=== PATIENT | female | born 1960 | race Caucasian/White ===

== ENCOUNTER 2017-03-26 08:26 | Emergency (ER) | payer OTHER ==
[2017-03-26 08:41] VITALS: BP 123/82
[2017-03-26] MEDS ORDERED: BACIGUENT PACKET ONE (09:06)
[2017-03-26] MEDS: BACIGUENT PACKET TP ONE (09:07)
--- NOTE | 2017-03-26 09:12 | ERPHSYRPT ---
- History of Present Illness Time Seen by Provider: 03/26/17 08:41 Source: patient Patient Subjective Stated Complaint: cat bite yesterday Triage Nursing Assessment: pt had stray mother cat and kittens for 12 hours in a pen--pt went in pen to feed and mother cat tried to get out of pen and pt grabbed cat and cat bit rt dorsal mid knuckles and lt outer hand. puncture wounds and slight redness noted to bilat hands. pt stated that the cat was acting appropriately for the time she had her. Physician History: CC: cat bite Hx: 56 y/o healthy patient of Dr Cardozo. 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 A family that had 7 week old kittens. Cat was apparently in a good state of health. 2 days ago, patient was feeding the cat, it became scared and bit her on the left and right hand. She took two left over amoxil yesterday. Today the right had and some redness and swelling. No fever or drng. Last tetanus vaccine 2 days ago. Mild discomfort. Allergies/Adverse Reactions: No Known Drug Allergies Allergy (Unverified 03/26/17 08:41) Hx Tetanus, Diphtheria Vaccination/Date Given: Yes Hx Influenza Vaccination/Date Given: No Hx Pneumococcal Vaccination/Date Given: No Immunizations Up to Date: Yes - Review of Systems Constitutional: No Fever, No Chills Respiratory: No Dyspnea Abdominal/Gastrointestinal: No Nausea, No Vomiting Neurological: No Focal Weakness, No Parasthesia All Other Systems: Reviewed and Negative - Past Medical History Pertinent Past Medical History: No - Past Surgical History Past Surgical History: Yes Female Surgical History: Tubal Ligation - Social History Smoking Status: Never smoker Exposure to second hand smoke: No Drug Use: none Patient Lives Alone: Yes - Female History Hx Now: No - Nursing Vital Signs Nursing Vital Signs: Initial Vital Signs Temperature 97.8 F Temperature Source Oral Pulse Rate 74 Respiratory Rate 18 Blood Pressure [Right Arm] 123/82 Pain Intensity 4 - Physical Exam General Appearance: alert Eyes, Ears, Nose, Throat Exam: moist mucous membranes Neck Exam: normal inspection, non-tender, supple Cardiovascular/Respiratory Exam: regular rate/rhythm Neuro/Tendon Exam: normal sensation, normal motor functions Mental Status Exam: alert, 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, cooperative Skin Exam: warm, dry Comments: left hand has small puncture without swelling, redness, or drng. Good ROM. Right hand has puncture dorsal between 3,4 MCP. Mild erythema and swelling. No drng. Good ROM. Pulse intact. Good cap refill. - Course Nursing assessment & vital signs reviewed: Yes - Radiology Exams right hand X-ray Interpretation: Teleradiologist Report, Negative Ordered Tests: Active Orders 24 hr Category Date Time Status Wound Care STAT Care 03/26/17 08:56 Active HAND (MINIMUM 3 VIEWS) Stat Exams 03/26/17 08:55 Completed Medication Summary Discontinued Medications Generic Name Dose Route Start Last Admin Trade Name Shiva PRN Reason Stop Dose Admin Bacitracin 0.9 gm 03/26/17 08:56 03/26/17 09:07 Baciguent Packet TP 03/26/17 08:57 0.9 gm STAT ONE Administration Bacitracin Confirm 03/26/17 09:06 Baciguent Packet Administered 03/26/17 09:07 Dose 1 gm .ROUTE .STK-MED ONE - Progress Progress Note: 03/26/17 10:15 Wound cleansed. Mild erythema. Will Rx augmentin. Discussed wound care and signs of infection with instr to return or see her family Dr Cardozo right away if needed. Called [facility] and spoke to Dr Isha Wallace [facility] rabies traveling storekeeper. She advised this is low risk of rabies as cat was healthy, no sign of neurological illness, provoked attack while feeding and separation from kittens. She advised no rabies prophylaxis. This was explained to pt in detail and she expresses understanding and agreement. Counseled pt/family regarding: diagnosis, need for follow-up, rad results - Departure Time of Disposition: 10:17 Departure Disposition: Home Clinical Impression: Cat bite of hand Qualifiers: Encounter type: initial encounter Laterality: right Qualified Code(s): S61.451A - Open bite of right hand, initial encounter; W55.01XA - Bitten by cat , initial encounter Condition: Stable Critical Care Time: No Referrals: AKASH NOGUERA DO [Primary Care Provider] - TALIA CARDOZO [ACTIVE STAFF] - Instructions: Animal Bites Additional Instructions: Keep wounds clean and dry. Elevate hands. Report any worsening infection (redness, swelling, drainage, fever, excessive pain) right away. Rx augmentin. Follow up with Dr Cardozo. Quarantine cat for 10 days to make sure stays healthy if the cat becomes available. Prescriptions: Amox Tr/Potass Clav. 500 mg [Augmentin 500-125 Tablet] 1 each PO TID #21 tablet
--- NOTE | 2017-03-26 09:23 | XRAY ---
Indication: Cat bite. Comparison: None 3 views of the right hand obtained. No bony, articular, or soft tissue abnormalities.
[2017-03-26 10:26] VITALS: PULSE 70
== END 2017-03-26 10:25 | disposition home or self-care (01) ==
LOC: ED 08:26
DX: S61.451A Open bite of right hand, initial encounter (principal); W55.01XA Bitten by cat, initial encounter
CPT/HCPCS: 73130; 99284; A9270-GY

== ENCOUNTER 2021-06-08 17:26 | Emergency (ER) | payer OTHER ==
[2021-06-08 17:31] VITALS: O2SAT 100
[2021-06-08] MEDS ORDERED: Sodium Chloride 0.9% 1000 ML 1,000 ML IV STA (17:34)
[2021-06-08] MEDS ORDERED: BABY ASPIRIN 81 MG CHEW PO ONE (17:34)
[2021-06-08] MEDS ORDERED: BABY ASPIRIN 81 MG CHEW ONE (17:39)
[2021-06-08] MEDS ORDERED: Sodium Chloride 0.9% 1000 ML 0 ML ONE (17:39)
--- NOTE | 2021-06-08 17:45 | ERPHSYRPT ---
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 It was associated with some dizziness and a heartburn feeling pain she was short of air she had some pounding in her chest she had a similar episode several years ago which was judged to be anxiety. She has been vaccinated for Covid she did have some diaphoresis with her dizziness. She actually had Covid in late last year. Risk factors are negative for diabetes negative for smoking cholesterol status is unknown there is no hypertension only family history is mother had mitral valve prolapse. Timing/Duration: today Activities at Onset: other (Working as work.) Quality: burning, fullness Location: substernal Chest Pain Radiation: no radiation Severity of Pain-Max: mild Severity of Pain-Current: mild Modifying Factors: Improves With: nothing Associated Symptoms: nausea, palpitations, heartburn, diaphoresis Nitro Today/Relief: no nitro taken today Aspirin Treatment Today: no aspirin today Allergies/Adverse Reactions: No Known Drug Allergies Allergy (Verified 06/08/21 17:35) Home Medications: No Reportable Medications [No Reported Medications] 06/08/21 [History] Hx Tetanus, Diphtheria Vaccination/Date Given: Yes Hx Influenza Vaccination/Date Given: Yes Hx Pneumococcal Vaccination/Date Given: No Immunizations Up to Date: No Travel Risk - International Travel Have you traveled outside of the country in past 3 weeks: No - Coronavirus Screening Are you exhibiting any of the following symptoms?: No - Vaccine Status Have you recieved a Covid-19 vaccination: Yes Care Provider: Moderna - Vaccination Dates Date of 2cond Vaccination (if applicable): ? - Review of Systems Constitutional: No Fever, No Chills Eyes: No Symptoms Ears, Nose, & Throat: No Symptoms Respiratory: Dyspnea, No Cough Cardiac: Chest Pain, Palpitations, No Edema, No Syncope Abdominal/Gastrointestinal: No Abdominal Pain, No Nausea, No Vomiting, No Diarrhea Genitourinary Symptoms: No Dysuria Musculoskeletal: No Back Pain, No Neck Pain Skin: No Rash Neurological: No Dizziness, No Focal Weakness, No Sensory Changes Psychological: No Symptoms Endocrine: No Symptoms All Other Systems: Reviewed and Negative - Past Medical History Pertinent Past Medical History: Yes Other Medical History: covid-aug 2020 - Past Surgical History Past Surgical History: Yes Female Surgical History: Tubal Ligation - Social History Smoking Status: Never smoker Exposure to second hand smoke: No Drug Use: none Patient Lives Alone: Yes - Female History Hx Last Menstrual Period: post - Physical Exam General Appearance: no apparent distress, alert Eye Exam: PERRL/EOMI, eyes nml inspection Ears, Nose, Throat Exam: normal ENT inspection, moist mucous membranes Neck Exam: normal inspection, non-tender, supple, full range of motion Respiratory Exam: normal breath sounds, lungs clear, No respiratory distress Cardiovascular Exam: regular rate/rhythm, normal heart sounds Gastrointestinal/Abdomen Exam: soft, No tenderness, No mass Back Exam: normal inspection, No CVA tenderness, No vertebral tenderness Extremity Exam: normal inspection, normal range of motion Neurologic Exam: alert, 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, cooperative, normal mood/affect, sensation nml, No motor deficits Skin Exam: normal color, warm, dry SpO2: 100 - Course Nursing assessment & vital signs reviewed: Yes - Departure Clinical Impression: Precordial chest pain Condition: Stable Referrals: TALIA OROSCO [Primary Care Provider] - <VIVEK PONCE - Last Filed: 06/08/21 20:33> - Nursing Vital Signs Nursing Vital Signs: Initial Vital Signs Pulse Rate 102 H 06/08/21 17:27 Blood Pressure 149/87 06/08/21 17:27 O2 Sat by Pulse Oximetry 100 06/08/21 17:27 Pain Scale Pain Intensity 2 Ordered Tests: Active Orders 24 hr Category Date Time Status Director [facility] STAT Care 06/08/21 17:35 Active EKG-ER Only STAT Care 06/08/21 17:34 Active IV Insertion STAT Care 06/08/21 17:34 Active CHEST 1 VIEW (PORTABLE) Stat Exams 06/08/21 17:35 Taken CHEST WITH CONTRAST [CT] Stat Exams 06/08/21 18:51 Ordered CBC W DIFF Stat Lab 06/08/21 17:56 Completed CMP Stat Lab 06/08/21 17:56 Completed D-DIMER QUANTITATIVE Stat Lab 06/08/21 18:15 Completed NT PRO BNP Stat Lab 06/08/21 17:56 Completed PROTIME WITH INR Stat Lab 06/08/21 18:15 Completed TROPONIN Q3H Lab 06/08/21 17:56 Completed TROPONIN Q3H Lab 06/08/21 20:45 Ordered TROPONIN Q3H Lab 06/08/21 23:45 Ordered TROPONIN Q3H Lab 06/09/21 02:45 Ordered TROPONIN Q3H Lab 06/09/21 05:45 Ordered UA W/RFX UR CULTURE Stat Lab 06/08/21 17:56 Completed Medication Summary Discontinued Medications Generic Name Dose Route Start Last Admin Trade Name Freq PRN Reason Stop Dose Admin Aspirin 324 mg 06/08/21 17:34 06/08/21 17:40 Baby Aspirin 81 Mg Chew PO 06/08/21 17:35 324 mg STAT ONE Administration Aspirin Confirm 06/08/21 17:39 Baby Aspirin 81 Mg Chew Administered 06/08/21 17:40 Dose 324 mg .ROUTE .STK-MED ONE Sodium Chloride 1,000 mls @ 999 mls/hr 06/08/21 17:34 06/08/21 17:42 Sodium Chloride 0.9% 1000 Ml IV 06/08/21 18:34 Not Given .Q1H1M STA Sodium Chloride Confirm 06/08/21 17:39 Sodium Chloride 0.9% 1000 Ml Administered 06/08/21 17:40 Dose 1,000 mls @ ud .ROUTE .STK-MED ONE Lab/Rad Data: Laboratory Result Diagrams 06/08/21 17:56 06/08/21 17:56 Laboratory Results 06/08/21 06/08/21 06/08/21 Range/Units 18:15 17:56 17:56 WBC (4.0-10.5) K/mm3 RBC (4.1-5.4) M/mm3 Hgb (12.0-16.0) gm/dl Hct (35-47) % MCV (78-100) fl MCH (26-32) pg MCHC (32-36) g/dl RDW (11.5-14.0) % Plt Count (150-450) K/mm3 MPV (7.5-11.0) fl Gran % (36.0-66.0) % Eos # (Auto) (0-0.5) Absolute Lymphs (auto) (1.0-4.6) Absolute Monos (auto) (0.0-1.3) Lymphocytes % (24.0-44.0) % Monocytes % (0.0-12.0) % Eosinophils % (0.00-5.0) % Basophils % (0.0-0.4) % Absolute Granulocytes (1.4-6.9) Basophils # (0-0.4) PT 10.6 (9.4-12.5) SECONDS INR 0.90 (0.8-3.0) D-Dimer 574 H* (215-500) ng/mL Sodium (137-145) mmol/L Potassium (3.5-5.1) mmol/L Chloride (98-107) mmol/L Carbon Dioxide (22-30) mmol/L Anion Gap (5-15) MEQ/L BUN (7-17) mg/dL Creatinine (0.52-1.04) mg/dL Estimated GFR ML/MIN Glucose (74-106) mg/dL Calcium (8.4-10.2) mg/dL Total Bilirubin (0.2-1.3) mg/dL AST (14-36) U/L ALT (0-35) U/L Alkaline Phosphatase (38-126) U/L Troponin I < 0.012 (0.000-0.034) ng/mL NT-Pro-B Natriuret Pep (0-900) pg/mL Serum Total Protein (6.3-8.2) g/dL Albumin (3.5-5.0) g/dL Urine Color YELLOW (YELLOW) Urine Appearance CLEAR (CLEAR) Urine pH 6.0 (5-6) Ur Specific [place] 1.016 (1.005-1.025) Urine Protein NEGATIVE (Negative) Urine Ketones NEGATIVE (NEGATIVE) Urine Blood NEGATIVE (0-5) Elieser/ul Urine Nitrite NEGATIVE (NEGATIVE) Urine Bilirubin NEGATIVE (NEGATIVE) Urine Urobilinogen NEGATIVE (0-1) mg/dL Ur Leukocyte Esterase NEGATIVE (NEGATIVE) Urine WBC (Auto) 0-2 (0-5) /HPF Urine RBC (Auto) NONE (0-2) /HPF U Epithel Cells (Auto) NONE (FEW) /HPF Urine Bacteria (Auto) NONE (NEGATIVE) /HPF Urine Mucus (Auto) SLIGHT (NEGATIVE) /HPF Urine Culture Reflexed NO (NO) Urine Glucose NEGATIVE (NEGATIVE) mg/dL 06/08/21 06/08/21 Range/Units 17:56 17:56 WBC 6.8 (4.0-10.5) K/mm3 RBC 4.62 (4.1-5.4) M/mm3 Hgb 13.4 (12.0-16.0) gm/dl Hct 40.7 (35-47) % MCV 88.1 (78-100) fl MCH 29.0 (26-32) pg MCHC 32.9 (32-36) g/dl RDW 13.4 (11.5-14.0) % Plt Count 255 (150-450) K/mm3 MPV 11.5 H (7.5-11.0) fl Gran % 56.2 (36.0-66.0) % Eos # (Auto) 0.22 (0-0.5) Absolute Lymphs (auto) 2.15 (1.0-4.6) Absolute Monos (auto) 0.58 (0.0-1.3) Lymphocytes % 31.7 (24.0-44.0) % Monocytes % 8.6 (0.0-12.0) % Eosinophils % 3.2 (0.00-5.0) % Basophils % 0.3 (0.0-0.4) % Absolute Granulocytes 3.81 (1.4-6.9) Basophils # 0.02 (0-0.4) PT (9.4-12.5) SECONDS INR (0.8-3.0) D-Dimer (215-500) ng/mL Sodium 138 (137-145) mmol/L Potassium 4.1 (3.5-5.1) mmol/L Chloride 106 (98-107) mmol/L Carbon Dioxide 26 (22-30) mmol/L Anion Gap 9.8 (5-15) MEQ/L BUN 16 (7-17) mg/dL Creatinine 0.60 (0.52-1.04) mg/dL Estimated GFR > 60.0 ML/MIN Glucose 103 (74-106) mg/dL Calcium 9.1 (8.4-10.2) mg/dL Total Bilirubin 0.50 (0.2-1.3) mg/dL AST 23 (14-36) U/L ALT 18 (0-35) U/L Alkaline Phosphatase 67 (38-126) U/L Troponin I (0.000-0.034) ng/mL NT-Pro-B Natriuret Pep 114 (0-900) pg/mL Serum Total Protein 6.4 (6.3-8.2) g/dL Albumin 3.8 (3.5-5.0) g/dL Urine Color (YELLOW) Urine Appearance (CLEAR) Urine pH (5-6) Ur Specific [place] (1.005-1.025) Urine Protein (Negative) Urine Ketones (NEGATIVE) Urine Blood (0-5) Elieser/ul Urine Nitrite (NEGATIVE) Urine Bilirubin (NEGATIVE) Urine Urobilinogen (0-1) mg/dL Ur Leukocyte Esterase (NEGATIVE) Urine WBC (Auto) (0-5) /HPF Urine RBC (Auto) (0-2) /HPF U Epithel Cells (Auto) (FEW) /HPF Urine Bacteria (Auto) (NEGATIVE) /HPF Urine Mucus (Auto) (NEGATIVE) /HPF Urine Culture Reflexed (NO) Urine Glucose (NEGATIVE) mg/dL - Progress Progress: improved Air Movement: good Progress Note: 06/08/21 20:31 Patient is checked out to me at shift change from Dr. Freeman with pending CTA results and further evaluation. Plan was to admit her for rule out if CTA is negative. Patient went for CTA and was found out that she is allergic to seafood and refused to have it. Initial troponins are negative. Chemistries are grossly unremarkable otherwise. Recommended observation admission for further evaluation but patient does not want to stay. Patient states "I have almost 40 animals at home and cannot stay in the hospital at all." I have offered her to stay for second troponin at least but she still wants to go. She does understand the risk of leaving without full work-up and initial heart markers can be falsely negative but still wants to leave. She is not confused or altered at all. Patient states "I will come back if I have any chest pain again, otherwise I will follow up with my primary care". Blood Culture(s) Obtained: No Antibiotics given: No Counseled pt/family regarding: lab results, diagnosis, rad results - Departure Departure Disposition: AMA Critical Care Time: No
[2021-06-08 18:08] LABS: Absolute Neutrophil Ct (ANC) 3.81 (1.4-6.9); BASOPHIL % 0.3 % (0.0-0.4); Basophil (Absolute #) 0.02 (0-0.4); Eosinophil % 3.2 % (0.00-5.0); Eosinophil (Absolute #) 0.22 (0-0.5); Hematocrit 40.7 % (35-47); Hemoglobin 13.4 gm/dl (12.0-16.0); Lymphocyte (Absolute #) 2.15 (1.0-4.6); Lymphocytes % 31.7 % (24.0-44.0); Mean Cell Volume 88.1 fl (78-100); Mean Corpuscular Hgb Concent. 32.9 g/dl (32-36); Mean Platelet Volume 11.5 fl (7.5-11.0); Monocyte (Absolute #) 0.58 (0.0-1.3); Monocytes % 8.6 % (0.0-12.0); Neutrophil % 56.2 % (36.0-66.0); Platelet Count 255 K/mm3 (150-450); Red Blood Count 4.62 M/mm3 (4.1-5.4); Red Cell Distribution Width 13.4 % (11.5-14.0); White Blood Count 6.8 K/mm3 (4.0-10.5)
[2021-06-08 18:24] LABS: ALBUMIN 3.8 g/dL (3.5-5.0); ALKALINE PHOSPHATASE 67 U/L (38-126); ANION GAP 9.8 MEQ/L (5-15); BLOOD UREA NITROGEN 16 mg/dL (7-17); CHLORIDE 106 mmol/L (98-107); Calcium 9.1 mg/dL (8.4-10.2); Carbon Dioxide 26 mmol/L (22-30); EST GLOMERULAR FILTRATION RATE > 60.0 ML/MIN; Glucose 103 mg/dL (74-106); Potassium 4.1 mmol/L (3.5-5.1); SGOT/AST 23 U/L (14-36); SGPT/ALT 18 U/L (0-35); SODIUM 138 mmol/L (137-145); Total Protein 6.4 g/dL (6.3-8.2)
[2021-06-08 18:26] LABS: INR 0.9 (0.8-3.0); PROTIME 10.6 SECONDS (9.4-12.5)
[2021-06-08 18:33] LABS: NT PRO BNP 114 pg/mL (0-900)
[2021-06-08 20:00] LABS: Appearance CLEAR (CLEAR); Bilirubin NEGATIVE (NEGATIVE); Blood NEGATIVE Ery/ul (0-5); Glucose NEGATIVE (NEGATIVE); Ketones NEGATIVE (NEGATIVE); Leukocyte Esterase NEGATIVE (NEGATIVE); Mucus SLIGHT /HPF (NEGATIVE); Nitrite NEGATIVE (NEGATIVE); Protein,Urine Dip NEGATIVE (Negative); Specific Gravity 1.016 (1.005-1.025); Urobilinogen NEGATIVE mg/dL (0-1); WBC 0-2 /HPF (0-5)
[2021-06-08 20:49] VITALS: BP 138/88; PULSE 98
--- NOTE | 2021-06-10 10:32 | XRAY ---
Exam: AP upright portable chest film from 06/08/2021. Comparison: Two-view chest from 11/01/2020. Indication: Chest tightness and burning today. Findings: The heart size appears within normal limits. A small epicardial fat-pad is seen at the left cardiophrenic angle. There is slight tortuosity of the ascending and descending thoracic aorta. The remainder of the marilynn and mediastinal structures appears unremarkable. The lungs are adequately inflated. Prior minimal linear atelectasis within the right middle lobe has resolved. However, there is a tiny transverse strand of probable plate atelectasis at the lateral left lung base. No air space infiltrates, vascular congestion, pneumothorax, or pleural fluid is seen. EKG leads are seen in place. No acute osseous process is seen. Impression: 1. No acute cardiopulmonary disease is seen.
== END 2021-06-08 20:48 | disposition left against medical advice (07) ==
LOC: ED 17:26
DX: R07.2 Precordial pain (principal)
CPT/HCPCS: 36000; 36415; 71045; 80053; 81001; 83880; 84484; 85025; 85379; 85610; 93005; 93041; 99284; A9270-GY

== ENCOUNTER 2022-08-10 11:44 | Emergency (ER) | payer OTHER ==
[2022-08-10] MEDS ORDERED: ANTIVERT 25 MG PO ONE (12:12)
--- NOTE | 2022-08-10 12:15 | ERPHSYRPT ---
- History of Present Illness Source: patient Exam Limitations: no limitations Patient Subjective Stated Complaint: intermittent dizziness, fall on Triage Nursing Assessment: pt to ED from [facility] for intermittent dizziness r/t fall on 08/06/22. no blood thinners and no LOC reported. pt states since she has had increased vertigo sx, nausea, and anxiety. denies pain now. Physician History: 62 yo Wf w dizziness x 2days. Pt states that dizziness is worse when she rolls over in bed and better when standing up. She did fall on the after tripping over a dog subsequently hitting her head, but DU has resolved. Pt denies otalgia/N/V/coryza/chest pain/dyspnea/palpatations. She has had dizziness in the past x1. Timing/Duration: yesterday Severity: mild Character of Deficits: none Deficits: no difficulties Baseline/Normal Cognition: alert 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 Current Cognition: alert 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 Baseline Gait: walks w/o assistance Associated Symptoms: denies symptoms Allergies/Adverse Reactions: shellfish derived Allergy (Verified 08/10/22 11:49) Home Medications: Cyanocobalamin (Vitamin B-12) [Vitamin B-12] 1 tab PO DAILY 08/10/22 [History] Cyclobenzaprine HCl 5 mg PO DAILY 08/10/22 [History] Levothyroxine Sodium 25 mcg PO DAILY 08/10/22 [History] Hx Tetanus, Diphtheria Vaccination/Date Given: Yes Hx Influenza Vaccination/Date Given: Yes Hx Pneumococcal Vaccination/Date Given: No Immunizations Up to Date: Yes Travel Risk - International Travel Have you traveled outside of the country in past 3 weeks: No - Coronavirus Screening Are you exhibiting any of the following symptoms?: No Close contact with a COVID-19 positive Pt in past 14-21 Days: No - Vaccine Status Have you recieved a Covid-19 vaccination: Yes Welder Tech: Moderna - Vaccination Dates Date of 2cond Vaccination (if applicable): ? - Review of Systems Constitutional: No Symptoms Eyes: No Symptoms Ears, Nose, & Throat: No Symptoms Respiratory: No Symptoms Cardiac: No Symptoms Abdominal/Gastrointestinal: No Symptoms Genitourinary Symptoms: No Symptoms Musculoskeletal: No Symptoms Skin: No Symptoms Neurological: No Symptoms, Dizziness Psychological: No Symptoms Endocrine: No Symptoms Hematologic/Lymphatic: No Symptoms Immunological/Allergic: No Symptoms - Past Medical History Pertinent Past Medical History: Yes Neurological History: No Pertinent History ENT History: No Pertinent History Cardiac History: No Pertinent History Respiratory History: No Pertinent History Endocrine Medical History: Hypothyroidism Musculoskeletal History: No Pertinent History GI Medical History: No Pertinent History History: No Pertinent History Psycho-Social History: No Pertinent History Female Reproductive Disorders: No Pertinent History Other Medical History: back pain - Past Surgical History Past Surgical History: Yes Female Surgical History: Tubal Ligation - Social History Smoking Status: Never smoker Exposure to second hand smoke: No Drug Use: none Patient Lives Alone: Yes - Nursing Vital Signs Nursing Vital Signs: Initial Vital Signs Temperature 97.3 F 08/10/22 11:52 Pulse Rate 98 H 08/10/22 11:52 Respiratory Rate 20 08/10/22 11:52 Blood Pressure 147/88 08/10/22 11:52 O2 Sat by Pulse Oximetry 98 08/10/22 11:52 Pain Scale Pain Intensity 0 Hypertensive - Alpesh Coma Scale Best Eye Response ([place]): (4) open spontaneously Best Verbal Response (Alpesh): (5) oriented Best Motor Response ([place]): (6) obeys commands [place] Total: 15 - Physical Exam General Appearance: no apparent distress Eye Exam: bilateral eye: normal inspection, PERRL, EOMI Ears, Nose, Throat Exam: normal ENT inspection, TMs normal, pharynx normal, moist mucous membranes Neck Exam: normal inspection, non-tender, supple, full range of motion, No meningismus, No mass, No Brudzinski, No Kernig's, No carotid bruit Respiratory: normal breath sounds, lungs clear, airway intact Cardiovascular: regular rate/rhythm, normal heart sounds, normal peripheral pulses, capillary refill <2 sec, No murmur Gastrointestinal: soft, normal bowel sounds, No tenderness Back Exam: normal inspection, normal range of motion, No CVA tenderness, No vertebral tenderness Extremity Exam: normal inspection, normal range of motion Peripheral Pulses: carotid (R): 2+, carotid (L): 2+ Mental 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, 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, 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 Exam: normal hearing, normal speech, PERRL, tongue midline, No abnormal eye position, No abnormal gag reflex, No abnormal pupil position, No abnormal speech, No facial asymmetry, No facial droop, No facial paresthesias, No facial weakness, No gaze palsy, No hearing deficit (R), No hearing deficit (L), No tongue deviation to R, No tongue deviation to L Motor/Sensory: no motor deficit, no sensory deficit, no pronator drift, negative Babinski's sign DTR: bicep (R): 2+, bicep (L): 2+ Skin Exam: normal color, warm, dry, No rash SpO2 Interpretation: normal SpO2: 98 O2 Delivery: Room Air - Course EKG Interpreted by Me: RATE (NSR/Rate97/Normal QT-QTc/Poor Rwave progression/Occ PVC/No acute ST segment changes) - CT Exams Head CT Interpretation: Discussed w/radiologist (CT head neg) Ordered Tests: Active Orders 24 hr Category Date Time Status EKG-ER Only STAT Care 08/10/22 12:11 Completed IV Insertion STAT Care 08/10/22 12:04 Completed HEAD WITHOUT CONTRAST [CT] Stat Exams 08/10/22 12:13 Completed MRI BRAIN W/O CONTRAST [MRI] Stat Exams 08/10/22 13:10 Completed CBC W DIFF Stat Lab 08/10/22 12:20 Completed CMP Stat Lab 08/10/22 12:20 Completed TROPONIN Q4H Lab 08/10/22 12:20 Completed Medication Summary Discontinued Medications Generic Name Dose Route Start Last Admin Trade Name Shiva PRN Reason Stop Dose Admin Meclizine HCl 25 mg 08/10/22 12:12 08/10/22 12:16 Meclizine Hcl 25 Mg Tablet PO 08/10/22 12:13 25 mg STAT ONE Administration Meclizine HCl Confirm 08/10/22 12:16 Meclizine Hcl 25 Mg Tablet Administered 08/10/22 12:17 Dose 25 mg .ROUTE .STK-MED ONE Scopolamine HBr 1.5 mg 08/10/22 14:24 08/10/22 14:29 Scopolamine 1.5 Mg Patch TOP 08/10/22 14:25 1.5 mg STAT ONE Administration Lab/Rad Data: Laboratory Result Diagrams 08/10/22 12:20 08/10/22 12:20 Laboratory Results 08/10/22 08/10/22 08/10/22 Range/Units 12:20 12:20 12:20 WBC 7.1 (4.0-10.5) x10^3/uL RBC 5.01 (4.1-5.4) x10^6/uL Hgb 14.6 (12.0-16.0) g/dL Hct 44.6 (35-47) % MCV 89.0 (78-100) fL MCH 29.1 (26-32) pg MCHC 32.7 (32-36) g/dL RDW 13.2 (11.5-14.0) % Plt Count 302 (150-450) x10^3/uL MPV 10.9 (7.5-11.0) fL Gran % 72.2 H (36.0-66.0) % Immature Gran % (Auto) 0.1 (0.00-0.4) % Nucleat RBC Rel Count 0.0 (0.00-0.1) % Eos # (Auto) 0.05 (0-0.5) x10^3/uL Immature Gran # (Auto) 0.01 (0.00-0.03) x10^3u/L Absolute Lymphs (auto) 1.34 (1.0-4.6) x10^3/uL Absolute Monos (auto) 0.53 (0.0-1.3) x10^3/uL Absolute Nucleated RBC 0.00 (0.00-0.01) x10^3u/L Lymphocytes % 18.9 L (24.0-44.0) % Monocytes % 7.5 (0.0-12.0) % Eosinophils % 0.7 (0.00-5.0) % Basophils % 0.6 (0.0-0.4) % Absolute Granulocytes 5.12 (1.4-6.9) x10^3/uL Basophils # 0.04 (0-0.4) x10^3/uL Sodium 141 (137-145) mmol/L Potassium 3.8 (3.5-5.1) mmol/L Chloride 106 (98-107) mmol/L Carbon Dioxide 28 (22-30) mmol/L Anion Gap 10.8 (5-15) MEQ/L BUN 14 (7-17) mg/dL Creatinine 0.62 (0.52-1.04) mg/dL Estimated GFR > 60.0 ML/MIN Glucose 107 H (74-106) mg/dL Calcium 9.1 (8.4-10.2) mg/dL Total Bilirubin 0.70 (0.2-1.3) mg/dL AST 22 (14-36) U/L ALT 22 (0-35) U/L Alkaline Phosphatase 76 (38-126) U/L Troponin I < 0.012 (0.000-0.034) ng/mL Serum Total Protein 7.2 (6.3-8.2) g/dL Albumin 4.3 (3.5-5.0) g/dL - Progress Progress: improved Progress Note: 08/10/22 14:20 MRI brain neg per Rad 08/10/22 14:24 25mg po Meclizine w mild improvement Pt refuses observational admit at this time TransDerm Scopolomine patch placed Counseled pt/family regarding: lab results, diagnosis, need for follow-up, rad results - Departure Departure Disposition: Home Clinical Impression: Vertigo Condition: Stable Critical Care Time: No Referrals: TERESA MONTENEGRO DO [Primary Care Provider] - Follow up/PCP as directed Instructions: Vertigo (a Type of Dizziness), Vertigo ED Prescriptions: Meclizine HCl 25 mg [Antivert 25 mg] 25 mg PO Q4H PRN PRN #20 tablet PRN Reason: Dizziness Scopolamine 1.5 mg Patch [Transderm Scop 1.5MG Patch] 1.5 mg TD WEEKLY PRN #1 packet PRN Reason: Dizziness
[2022-08-10] MEDS ORDERED: ANTIVERT 25 MG ONE (12:16)
[2022-08-10 12:22] LABS: Absolute Neutrophil Ct (ANC) 5.12 x10^3/uL (1.4-6.9); Basophil (Absolute #) 0.04 x10^3/uL (0-0.4); Eosinophil % 0.7 % (0.00-5.0); Eosinophil (Absolute #) 0.05 x10^3/uL (0-0.5); Hematocrit 44.6 % (35-47); Hemoglobin 14.6 g/dL (12.0-16.0); Lymphocyte (Absolute #) 1.34 x10^3/uL (1.0-4.6); Lymphocytes % 18.9 % (24.0-44.0); Mean Corpuscular Hemoglobin 29.1 pg (26-32); Mean Corpuscular Hgb Concent. 32.7 g/dL (32-36); Mean Platelet Volume 10.9 fL (7.5-11.0); Monocyte (Absolute #) 0.53 x10^3/uL (0.0-1.3); Monocytes % 7.5 % (0.0-12.0); Neutrophil % 72.2 % (36.0-66.0); Platelet Count 302 x10^3/uL (150-450); Red Blood Count 5.01 x10^6/uL (4.1-5.4); Red Cell Distribution Width 13.2 % (11.5-14.0); White Blood Count 7.1 x10^3/uL (4.0-10.5)
[2022-08-10 12:36] LABS: ALBUMIN 4.3 g/dL (3.5-5.0); ALKALINE PHOSPHATASE 76 U/L (38-126); BLOOD UREA NITROGEN 14 mg/dL (7-17); CHLORIDE 106 mmol/L (98-107); Calcium 9.1 mg/dL (8.4-10.2); Carbon Dioxide 28 mmol/L (22-30); Creatinine 1 0.62 mg/dL (0.52-1.04); EST GLOMERULAR FILTRATION RATE > 60.0 ML/MIN; Glucose 107 mg/dL (74-106); SGOT/AST 22 U/L (14-36); SGPT/ALT 22 U/L (0-35); SODIUM 141 mmol/L (137-145); Total Protein 7.2 g/dL (6.3-8.2)
[2022-08-10 12:37] LABS: Potassium 3.8 mmol/L (3.5-5.1)
[2022-08-10 12:42] LABS: ANION GAP 10.8 MEQ/L (5-15)
--- NOTE | 2022-08-10 12:43 | XRAY ---
Indication: Vertigo. Posterior head injury. Multiple contiguous axial images obtained through the head without contrast. Comparison: None Normal appearing brain parenchyma, ventricles, and bony calvarium for patient's age. Visualized paranasal sinuses and mastoid air cells are clear. Impression: Normal CT head without contrast exam.
[2022-08-10 13:19] VITALS: BP 118/75; PULSE 96
--- NOTE | 2022-08-10 14:08 | XRAY ---
Indication: Dizziness. Sagittal, coronal, and axial MRI brain performed without contrast using T1, T2, FLAIR, diffusion, and ADC sequences. Comparison: None Ventriculosulcal pattern appears symmetric. No acute intracranial hemorrhage, abnormal extra-axial fluid collection, or mass effect. Diffusion images negative for restricted signal. Fourth ventricle is midline without hydrocephalus. 7/8 cranial nerve complex bilaterally symmetric. Normal flow void signal within the major intracerebral circulation. Normal appearing craniocervical junction and sella turcica. Paranasal sinuses are clear. Impression: Normal MRI brain without contrast exam.
[2022-08-10] MEDS ORDERED: Transderm Scop 1.5MG Patch TOP ONE (14:24)
[2022-08-10 14:25] VITALS: O2SAT 98
== END 2022-08-10 14:37 | disposition home or self-care (01) ==
LOC: ED 11:44
DX: R42 Dizziness and giddiness (principal); Z79.899 Other long term (current) drug therapy; Z91.81 History of falling
CPT/HCPCS: 36000; 36415; 70450; 70551; 80053; 84484; 85025; 93005; 99284; A9270-GY

== ENCOUNTER 2024-03-12 12:02 | Emergency (ER) | payer OTHER | END 2024-03-12 13:50 | disposition left against medical advice (07) | LOC: ED 12:02 | DX: Z53.21 Procedure and treatment not carried out due to patient leaving prior to being seen by health care provider (principal) ==

== ENCOUNTER 2024-06-19 19:00 | Emergency (ER) | payer OTHER ==
[2024-06-19 20:21] VITALS: PULSE 102; RESP 18; TEMP 98.1; O2SAT 99
[2024-06-19 21:29] VITALS: BP 192/86
--- NOTE | 2024-06-19 21:36 | ERPHSYRPT ---
- History of Present Illness Time Seen by Provider: 06/19/24 21:00 Source: patient Exam Limitations: no limitations Patient Subjective Stated Complaint: pt states she fell off of a stool and her ankle went sideways, denies any other injury Triage Nursing Assessment: pt alert and oriented, answers questions approp. pt backto room per wheelchair and transfers to stretcher per self, nwb on lt leg. swelling and bruising noted to lt ankle, pedal pulse and cap refill wnl. Physician History: 64yo f presents via private vehicle for left ankle pain. Pt reports she fell from the second step of a step ladder today, landed on her left ankle at which time it pronated and began hurting. 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 Pt reports pain in the left ankle, denies hitting her head on fall, does not complain of any knee or hip pain. Pt reports she is unable to tolerate weight bearing for the past several hours. Method of Injury: fell Occurred: this evening Quality: constant Severity of Pain-Max: moderate Severity of Pain-Current: mild Lower Extremities Pain: ankle: left Modifying Factors: Improves With: nothing Associated Symptoms: unable to bear weight Allergies/Adverse Reactions: shellfish derived Allergy (Severe, Verified 06/19/24 20:21) Home Medications: Cyanocobalamin (Vitamin B-12) [Vitamin B-12] 1 tab PO DAILY 08/10/22 [History] Cyclobenzaprine HCl 5 mg PO DAILY 08/10/22 [History] Levothyroxine Sodium 25 mcg PO DAILY 08/10/22 [History] Hx Tetanus, Diphtheria Vaccination/Date Given: Yes Hx Influenza Vaccination/Date Given: Yes Hx Pneumococcal Vaccination/Date Given: No Immunizations Up to Date: Yes Travel Risk - International Travel Have you traveled outside of the country in past 3 weeks: No - Emerging Infectious Disease Are you exhibiting symptoms associated with any current EIDs: No - Review of Systems Constitutional: No Symptoms Respiratory: No Symptoms Cardiac: No Symptoms Musculoskeletal: Injury, Joint Pain, Joint Swelling - Past Medical History Pertinent Past Medical History: Yes Neurological History: No Pertinent History ENT History: No Pertinent History Cardiac History: No Pertinent History Respiratory History: No Pertinent History Endocrine Medical History: No Pertinent History Musculoskeletal History: No Pertinent History GI Medical History: No Pertinent History History: No Pertinent History Psycho-Social History: No Pertinent History Female Reproductive Disorders: No Pertinent History Other Medical History: back pain - Past Surgical History Past Surgical History: Yes Female Surgical History: Tubal Ligation - Social History Smoking Status: Never smoker Exposure to second hand smoke: No Drug Use: none Patient Lives Alone: Yes - Social Determinants of Health Will the patient participate in the screening: Yes Do you worry about a steady place to live?: No Do you have any problems with any of the following?: No known problems In the past 12 months,have you had to go without utilities?: No Transportation Issues: No Has anyone in your support network made you feel unsafe?: No Have you or anyone in your house had to go without enough: No - Nursing Vital Signs Nursing Vital Signs: Initial Vital Signs Temperature 98.1 F 06/19/24 20:07 Pulse Rate 102 H 06/19/24 20:07 Respiratory Rate 18 06/19/24 20:07 Blood Pressure 144/67 06/19/24 20:07 O2 Sat by Pulse Oximetry 99 06/19/24 20:07 Pain Scale Pain Intensity 8 - Physical Exam General Appearance: no apparent distress, alert Cardiovascular/Respiratory Exam: chest non-tender, normal breath sounds, heart sounds normal Hips Exam: bilateral: non-tender, normal inspection, normal range of motion, no evidence of injury Legs Exam: bilateral leg: non-tender, normal inspection, normal range of motion, no evidence of injury Knees Exam: bilateral knee: non-tender, normal inspection, normal range of motion, no evidence of injury Ankle Exam: right ankle: non-tender, normal inspection, normal range of motion, no evidence of injury, left ankle: pain, soft tissue tenderness (TTP over medial aspect of ankle/foot), swelling (no significant bruising), bilateral ankle: other (pulses intact and palpable) Foot Exam: bilateral foot: non-tender, normal inspection, normal range of motion, no evidence of injury Neuro/Tendon Exam: normal sensation, normal motor functions, normal tendon functions Mental Status Exam: alert, 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, cooperative Skin Exam: normal color, warm, dry SpO2 Interpretation: normal SpO2: 99 O2 Delivery: Room Air Ordered Tests: Active Orders 24 hr Category Date Time Status ANKLE (3 VIEWS) Stat Exams 06/19/24 20:16 Taken - Progress Progress: improved Progress Note: 06/19/24 21:40 no evidence of acute fx likely sprain vs strain of left ankle follow up with orthopedic walk in clinic this week applied AMARA wrap to left ankle and placed in walking boot given crutches recommend using tylenol/ibuprofen for discomfort, recommend ice and elevation for swelling return to ED if: pain becomes unbearable, develop loss of sensation or discoloration of left foot or lower leg Counseled pt/family regarding: diagnosis, need for follow-up, rad results Medical Desision Making - Diagnostic Testing Diagnostic test were ordered, analyzed, and reviewed by me: Yes Radiological Interpretation: Interpreted by me, Reviewed by me - Risk of complications Minimal Risk: Minimal risk of morbidity - Departure Departure Disposition: Home Clinical Impression: Acute left ankle pain Condition: Stable Critical Care Time: No Referrals: HAILEE STEWART [Primary Care Provider] - Follow up/PCP as directed Additional Instructions: follow up with orthopedic walk in clinic this week applied AMARA wrap to left ankle and placed in walking boot given crutches recommend using tylenol/ibuprofen for discomfort, recommend ice and elevation for swelling return to ED if: pain becomes unbearable, develop loss of sensation or discoloration of left foot or lower leg
--- NOTE | 2024-06-20 08:44 | XRAY ---
Indication: Pain following fall. Comparison: None 3 view left ankle demonstrates anterolateral soft tissue swelling and tiny heel spurs. No other bony, articular, or soft tissue abnormalities.
== END 2024-06-19 21:55 | disposition home or self-care (01) ==
LOC: ED 19:00
DX: M25.572 Pain in left ankle and joints of left foot (principal); Z79.899 Other long term (current) drug therapy
CPT/HCPCS: 73610; 99283; L4386

== ENCOUNTER 2024-12-21 12:38 | Emergency (ER) | payer OTHER ==
[2024-12-21 13:05] VITALS: TEMP 97.7; O2SAT 99
--- NOTE | 2024-12-21 13:43 | ERPHSYRPT ---
- History of Present Illness Time Seen by Provider: 12/21/24 13:11 Source: patient Exam Limitations: no limitations Patient Subjective Stated Complaint: Fall at home prior to coming into the ER today. Denies any pain or injuries. States, "I hit the back of my head on concr ete and just thought I should be monitored." Denies loss of conciousness, N/V, or headache. Triage Nursing Assessment: Patient ambulated back to ER without difficulties. She is alert and oriented; anxious and tearful. When asking patient why she is tearful, she states "because I'm scared." No skin alterations present to head. Pupils are equal. [place]. Physician History: 64 years old fairly healthy female presented in the ER after she was pulling on something at home which broke and fell backward, hit her head against the concrete. This happened almost 30 minutes prior to arrival. Complaining of minimal headache and some neck muscle tightening. Denies any numbness tingling or weakness. No loss of consciousness. No visual changes. Denies any chest pain palpitations or shortness of breath before or after the fall. Denies nausea or vomiting. Allergies/Adverse Reactions: shellfish derived Allergy (Severe, Verified 12/21/24 12:53) Home Medications: No Reportable Medications [No Reported Medications] 12/21/24 [History] Hx Tetanus, Diphtheria Vaccination/Date Given: Yes Hx Influenza Vaccination/Date Given: Yes Hx Pneumococcal Vaccination/Date Given: No Immunizations Up to Date: Yes Travel Risk - International Travel Have you traveled outside of the country in past 3 weeks: No - Emerging Infectious Disease Are you exhibiting symptoms associated with any current EIDs: No - Review of Systems Constitutional: No Symptoms Eyes: No Symptoms Ears, Nose, & Throat: No Symptoms Respiratory: No Symptoms Cardiac: No Symptoms Abdominal/Gastrointestinal: No Symptoms Genitourinary Symptoms: No Symptoms Musculoskeletal: No Symptoms Skin: No Symptoms Neurological: Headache Psychological: No Symptoms Hematologic/Lymphatic: No Symptoms Immunological/Allergic: No Symptoms - Past Medical History Pertinent Past Medical History: Yes Neurological History: No Pertinent History ENT History: No Pertinent History Cardiac History: No Pertinent History Respiratory History: No Pertinent History Endocrine Medical History: Hypothyroidism Musculoskeletal History: No Pertinent History GI Medical History: No Pertinent History History: No Pertinent History Psycho-Social History: No Pertinent History Female Reproductive Disorders: No Pertinent History - Past Surgical History Past Surgical History: Yes Female Surgical History: Tubal Ligation - Social History Smoking Status: Never smoker Drug Use: none - Social Determinants of Health Will the patient participate in the screening: Declined to provide - Nursing Vital Signs Nursing Vital Signs: Initial Vital Signs Temperature 97.7 F 12/21/24 12:54 Pulse Rate 97 H 12/21/24 12:54 Respiratory Rate 18 12/21/24 12:54 Blood Pressure 200/103 12/21/24 12:54 O2 Sat by Pulse Oximetry 99 12/21/24 12:54 Pain Scale Pain Intensity 0 - Alpesh Coma Score Best Eye Response (Alpesh): (4) open spontaneously Best Verbal Response (Alpesh): (5) oriented Best Motor Response ([place]): (6) obeys commands Alpesh Total: 15 - Physical Exam General Appearance: no apparent distress, alert Head Injury: tenderness (Minimal occipital), No Aguirre's Sign Eye Exam: bilateral eye: normal inspection, PERRL, EOMI ENT Exam: airway nml, No evidence of ENT injury, No dental injury Neck Exam: supple, trachea midline, full range of motion, normal alignment, normal inspection, muscle spasm, No focal neuro deficit, No limited range of motion Cardiovascular/Respiratory Exam: chest non-tender, normal breath sounds, regular rate/rhythm Back Exam: normal inspection Extremity Exam: non-tender, normal range of motion, normal inspection Mental Status Exam: alert, 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, 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 Exam: normal hearing, normal speech, PERRL Coordination/Gait Exam: normal finger to nose, normal gait, normal cerebellar function, negative Romberg's sign Motor/Sensory Exam: no motor deficit, no sensory deficit, no pronator drift, negative Babinski's sign DTR Exam: bicep (R): 2+, bicep (L): 2+, knee (R): 2+, knee (L): 2+ Skin Exam: normal color SpO2 Interpretation: normal SpO2: 99 O2 Delivery: Room Air Ordered Tests: Active Orders 24 hr Category Date Time Status CERVICAL SPINE WO CONTRAST [CT] Stat Exams 12/21/24 13:40 Completed HEAD WITHOUT CONTRAST [CT] Stat Exams 12/21/24 13:40 Completed - Progress Progress: improved Progress Note: 12/21/24 15:50 64-year-old is evaluated in the ER for ground-level fall with no loss of consciousness and injury to the back of her head. Minimal headache. Nonfocal neuroexam throughout her stay in the ER. No cervical spine with midline tenderness but some tenderness on the right trapezius area. Obtain CT head and cervical spine which are negative for any acute trauma findings. It was a clear mechanical fall, do not think patient needs any other workup and is stable for discharge. Discussed with patient about signs symptoms of worsening and head injury needing return to ER which she seems understanding. Stable for discharge. Complexity of problem addressed.: Moderate acute Complexity of data reviewed/analyzed: Moderate Risk of complication/morbidity/mortality associated with condition: Moderate 12/21/24 15:55 Counseled pt/family regarding: diagnosis, need for follow-up, rad results Medical Desision Making - Diagnostic Testing Diagnostic test were ordered, analyzed, and reviewed by me: Yes Radiological Interpretation: Reviewed by me, Teleradiologist Report - Departure Departure Disposition: Home Clinical Impression: Scalp contusion, Fall Condition: Stable Critical Care Time: No Referrals: HAILEE STEWART [Primary Care Provider] - Follow up with PCP 1 day Instructions: Head injury observation in adults Additional Instructions: Take Tylenol as needed. Stay with responsible person for next 24 to 48 hours with frequent neurochecks, return to ER for intractable headache, vision changes, intractable vomiting, not acting herself etc.
--- NOTE | 2024-12-21 15:23 | XRAY ---
CLINICAL HISTORY: fall, occipital injury COMPARISON: No previous studies are available for comparison. TECHNIQUE: CT scan of the cervical spine was performed without the administration of intravenous contrast. Contiguous axial images were obtained from the skull base to the upper thoracic spine. Coronal and sagittal reformatted images were also reviewed. One of the following dose reduction techniques was utilized for this exam. Automated exposure control, adjustment of the mA and/or kV according to patient size, and use of iterative reconstruction. FINDINGS: Vertebrae: The vertebral bodies are normal in height and alignment. No evidence of acute fracture or dislocation. C2 over C3 grade I anterior spondylolisthesis. C5 over C6 mild retrolisthesis. The cortical and trabecular bone patterns are normal. No signs of lytic or sclerotic lesions. Normal configuration of the posterior elements. Intervertebral Discs: The intervertebral disc spaces are narrowing, subchondral sclerosis and marginal osteophytes. Facet Joints: The facet joints are narrowing, subchondral sclerosis, and marginal osteophytes Neural Foramina: Left C3-C4, C4-C5, C5-C6, C7-T1 moderate neural foraminal stenosis. By disc osteophyte complex. Right C4-C5, C6-C7 moderate neural foraminal stenosis. By disc osteophyte complex. Prevertebral Soft Tissues: The prevertebral soft tissues are normal in thickness without evidence of mass or abnormal fluid collection. Additional Findings: No other significant findings are noted in the visualized soft tissue structures or bony elements. Atlanto-axial osteoarthritic changes. IMPRESSION: 1. Cervical spondylosis with facet arthropathy. 2. Left C3-C4, C4-C5, C5-C6, C7-T1 moderate neural foraminal stenosis. By disc osteophyte complex. 3. Right C4-C5, C6-C7 moderate neural foraminal stenosis. By disc osteophyte complex. 4. C2 over C3 grade I anterior spondylolisthesis. 5. C5 over C6 mild retrolisthesis. Electronically Signed by: Denae Cui MD. (12/21/2024 15:18:46 EST)
--- NOTE | 2024-12-21 15:27 | XRAY ---
CLINICAL HISTORY: fall, occipital injury COMPARISON: None. TECHNIQUE: An axial non-contrast CT scan of the brain was performed from the skull base to the high parietal region. One of the following dose reduction techniques was utilized for this exam: Automated exposure control, adjustment of the mA and/or kV according to patient size, and use of iterative reconstruction. FINDINGS: Brain Parenchyma: Normal attenuation of the cerebral hemispheres, cerebellum, and brainstem. No evidence of acute infarct, hemorrhage, or mass effect. No abnormal areas of hypo- or hyperattenuation. Ventricular System: Mild dilatation of the ventricular system, with diffuse periventricular hypodensity, likely due to diffuse ischemic changes. Subarachnoid Spaces: Increased extra-axial subarachnoid spaces with prominent gyri and deep sulci of the brain, prominent cerebellar folia, basal cisterns, and Sylvian fissures. No evidence of subarachnoid hemorrhage or extra-axial fluid collections. Cerebellum and Brainstem: Normal size and signal. No masses, lesions, or areas of abnormal signal. Orbits: Normal appearance of the globes, optic nerves, and extraocular muscles. No evidence of orbital masses or abnormal signals. Sinuses: Clear paranasal sinuses. No evidence of sinusitis or mucosal thickening. Mastoid Air Cells: Clear mastoid air cells. No evidence of mastoiditis. Skull: Normal skull morphology. IMPRESSION: 1. No acute Brain injury. No skull bony fracture. 2. Diffuse Brain senile changes. 3. Diffuse chronic microvascular ischemic disease. Electronically Signed by: Denae Cui MD. (12/21/2024 15:22:32 EST)
[2024-12-21 16:06] VITALS: BP 128/80; PULSE 70; RESP 17
== END 2024-12-21 16:06 | disposition home or self-care (01) ==
LOC: ED 12:38
DX: S00.03XA Contusion of scalp, initial encounter (principal); W18.39XA Other fall on same level, initial encounter; R51.9 Headache, unspecified
CPT/HCPCS: 70450; 72125; 99283; 99284